=== PATIENT | male | born 1975 | race Caucasian/White ===

== ENCOUNTER → 2020-11-16 | Outpatient (CLI) | payer OTHER, BC ==
[~2020-11-16] MED LIST: CITALOPRAM HBR20 MG PO; LIPITOR80 MG PO; LISINOPRIL5 MG PO; NAPROXEN500 MG PO; NORCO 10-325 T1 EACH PO; PHENERGAN 25 MG25 M1 PO; TEGRETOL 200 M200 MG PO; VANCOMYCIN IV; ZYLOPRIM 100 M100 MG PO
== END ==
LOC: KOH-I 13:21
DX: T14.8XXA Other injury of unspecified body region, initial encounter (principal); M50.321 Other cervical disc degeneration at C4-C5 level; M51.34 Other intervertebral disc degeneration, thoracic region; W19.XXXA Unspecified fall, initial encounter
CPT/HCPCS: 72050; 72070; 73030

== ENCOUNTER → 2020-11-17 | Outpatient (CLI) | payer OTHER | LOC: KOH-I 09:47 | DX: R07.81 Pleurodynia (principal); S22.32XA Fracture of one rib, left side, initial encounter for closed fracture; W19.XXXA Unspecified fall, initial encounter | CPT/HCPCS: 71111 ==

== ENCOUNTER → 2020-12-07 | Outpatient (CLI) | payer OTHER | LOC: KOH-I 13:49 | DX: S22.42XA Multiple fractures of ribs, left side, initial encounter for closed fracture (principal); X58.XXXA Exposure to other specified factors, initial encounter | CPT/HCPCS: 71100 ==